=== PATIENT | female | born 1995 | race Caucasian/White ===

== ENCOUNTER 2017-11-15 19:20 | Emergency (ER) | payer OTHER ==
[~2017-11-15] VITALS: Ht 152.4 cm; Wt 48.6 kg
[2017-11-15 19:23] VITALS: TEMP 97.1
[2017-11-15] MEDS ORDERED: JUNEL FE 1.5/301 TAB PO (19:46)
[2017-11-15 20:09] LABS: BASO % 0.1 % (0.0-2.0); EOS # 0.1 (0.0-0.7); EOS % 1.1 % (0-4.0); GRAN # 6.6 (1.4-6.5); GRAN % 89.1 % (42.2-75.2); HEMATOCRIT 39.8 % (35.0-45.0); HEMOGLOBIN 13.9 g/dl (12.0-15.0); LYMPH # 0.5 (1.2-3.4); LYMPH % 6.6 % (20.0-51.0); MEAN CELL VOLUME 89 fl (80.0-95.0); MEAN CORPUSCULAR HEMOGLOBIN 31 pg (26.0-32.0); MEAN CORPUSCULAR HGB CONC 35 g/dl (33.0-37.0); MONO # 0.2 (0.1-0.6); MONO % 2.8 % (1.7-9.3); PLATELET COUNT 129 K/mm3 (130-400); RED BLOOD COUNT 4.45 M/mm3 (4.10-5.30); REDCELL DISTRIBUTION WIDTH-CV 12.6 % (11.5-14.5)
[2017-11-15 20:23] LABS: ALBUMIN 3.7 gm/dL (3.5-5.0); C-REACTIVE PROTEIN 1.9 mg/dL (0.0-0.9); CALCIUM 9.1 mg/dL (8.4-10.2); CREATININE, serum 0.89 mg/dL (0.52-1.25); POTASSIUM 3.7 mmol/L (3.4-5.0); TOTAL PROTEIN 6.9 gm/dL (6.4-8.2)
[2017-11-15] MEDS ORDERED: PREDNISONE20 MG PO (21:37)
[2017-11-15 22:49] VITALS: BP 97/59; PULSE 104
== END 2017-11-15 22:35 | disposition home or self-care (01) ==
LOC: COL.ER 19:20
PROVIDERS: Physician Assistant
DX: R21 Rash and other nonspecific skin eruption (principal)
CPT/HCPCS: J2930; J7030